=== PATIENT | male | born 1975 | race Caucasian/White ===

== ENCOUNTER 2019-07-17 02:59 | Emergency (ER) | payer OTHER, SELFPAY ==
--- NOTE | 2019-07-17 03:10 | PC.NURSE ---
PT STATED THAT HE DIDNT HAVE ENOUGH ENERGY TO WAIT TO BE SEEN, SO PATIENT WALKED OUT.
== END 2019-07-17 03:10 | disposition left against medical advice (07) ==
LOC: ANHED 03:23
DX: Z53.21 Procedure and treatment not carried out due to patient leaving prior to being seen by health care provider (principal)
CPT/HCPCS: 99199

== ENCOUNTER 2020-07-26 21:45 | Emergency (ER) | payer OTHER, SELFPAY ==
--- NOTE | ~2020-07-26 | XR_ITS ---
EXAMINATION: XR chest 2V DATE: 07/26/2020 22:25 INDICATION: Tachycardia. Palpitations. TECHNIQUE: PA and lateral views of the chest were obtained. COMPARISON: Chest radiograph dated 06/21/2016 FINDINGS: Again seen is a calcified nodule in the anterior left midlung zone consistent with old granulomatous disease. No other airspace opacities, pulmonary edema, pleural effusion or pneumothorax. The cardiome diastinal silhouette is normal. Visualized bones and soft tissues are unremarkable. IMPRESSION: 1. No acute cardiopulmonary disease. Reviewed, dictated and finalized at location A. T FITTER
--- NOTE | ~2020-07-26 | CT_ITS ---
EXAMINATION: CTA chest PE protocol DATE: 07/26/2020 23:46 INDICATION: Tachycardia. Palpitations. Elevated d-dimer. TECHNIQUE: Computed tomography (CT) pulmonary angiogram of the chest was performed with 100 mL Omnipa que-350 intravenous contrast. Additional 3D reconstructions utilizing coronal maximum intensity proje ction (MIP) were performed. Automated exposure control and iterative reconstruction technique were em ployed. The dose-length product was 1053.14 mGy-cm. COMPARISON: None FINDINGS: Adequate but suboptimal contrast opacification of the pulmonary arteries. There is mild streak artifa ct from dense contrast in the superior vena cava and right atrium. Mild scattered respiratory motion artifact which does not significantly limit evaluation. No pulmonary embolism. Mild dependent atelect asis in the bilateral lower lobes. Calcified left upper lobe nodule and calcified mediastinal lymph n odes consistent with old granulomatous disease. Heart size is normal. No pericardial effusion. Thorac ic aorta is normal in caliber with no dissection. Small sliding-type hiatal hernia. A few mildly prom inent but still normal-sized likely reactive right hilar lymph nodes. No pathologically enlarged thor acic lymphadenopathy. Gynecomastia. Visualized upper abdomen and bones are unremarkable. IMPRESSION: 1. No pulmonary embolism or other acute cardiopulmonary disease. Reviewed, dictated and finalized at location A. CAL COLLECTOR
[2020-07-26 21:48] VITALS: BP 176/110; PULSE 123; RESP 14; TEMP 36.7; O2SAT 100
--- NOTE | 2020-07-26 21:55 | ECG_ITS ---
Measurements Intervals [place] Rate: 120 P: 55 NH: 174 QRS: -44 QRSD: 113 T: 75 QT: 314 QTc: 445 Interpretive Statements SINUS TACHYCARDIA LEFT AXIS DEVIATION DELAYED PRECORDIAL R/S TRANSITION ABNORMAL ECG Electronically Signed On 07-27-2020 7:04:47 [employer] by Sumeet Brooks D.O.
--- NOTE | 2020-07-26 21:56 | ED.ARRPALP ---
HPI - Arrhythmia/Palpitations General Chief Complaint: Arrhythmia/Palpitations Stated Complaint: elevated heart rate Time Seen by Provider: 07/26/20 21:53 Source: patient Mode of arrival: ambulatory Limitations: no limitations History of Present Illness HPI narrative: Pt c/o palpitations, started [employer] after he was running around chasing his kids, sudden onset. Pt denies any cp, sob, abd pain, n/v/d fever or chills. Patient states he has a history of hypertension but has not taken his blood pressure medications. MD complaint: heart racing and palpitations Related Data Home Medications Medication Instructions Recorded Confirmed lisinopril 20 1 tablet PO DAILY 05/07/19 mg-hydrochlorothiazide 12.5 mg tablet nebivolol 5 mg tablet 5 mg PO DAILY 05/07/19 vilazodone 40 mg tablet 40 mg PO DAILY 04/18/20 04/18/20 Allergies Allergy/AdvReac Type Severity Reaction Status Date / Time Sulfa (Sulfonamide Allergy Mild Rash Verified 07/26/20 21:52 Antibiotics) Review of Systems Review of Systems: All systems reviewed & are unremarkable except as noted in HPI and below Constitutional: Constitutional: Denies body ache(s), Denies chills, Denies excessive sweating, Denies fatigue, Denies fever(s), Denies headache(s), Denies lethargy, Denies malaise, Denies weakness and Denies weight loss Eyes: Eyes: Denies blurry vision, Denies change in vision and Denies loss of vision ENT: Denies dizziness, Denies ear discharge, Denies headache(s), Denies lip swelling, Denies epistaxis, Denies nasal congestion, Denies neck pain, Denies throat swelling and Denies tongue swelling Cardiovascular: Cardiovascular: Denies chest pain, Denies chest pain at rest, Denies chest pain with activity, Denies diaphoresis, Denies edema, Denies irregular heart rhythm, Denies lightheadedness, Denies dyspnea and Denies dyspnea on exertion Respiratory: Respiratory: Denies chest congestion, Denies cough, Denies hemoptysis, Denies dyspnea and Denies dyspnea on exertion Gastrointestinal: Gastrointestinal: Denies abdominal pain, Denies melena, Denies hematochezia, Denies diarrhea, Denies nausea, Denies vomiting and Denies hematemesis Musculoskeletal: Musculoskeletal: Denies abnormal gait, Denies deformity, Denies joint swelling, Denies limited range of motion, Denies neck pain and Denies numbness Neurologic: Denies Abnormal speech present, Denies abnormal gait, Denies confusion, Denies dizziness, Denies headache(s), Denies focal weakness, Denies loss of vision, Denies numbness, Denies Other visual disturbances, Denies Sensory deficit (Neuro) and Denies weakness Psychiatric: Psychiatric: Denies confusion, Denies depression, Denies auditory hallucinations, Denies homicidal ideation and Denies suicidal ideation Endocrine: Endocrine: Denies cold intolerance, Denies excessive sweating, Denies fatigue, Denies heat intolerance and Denies palpitations Hematologic/Lymphatic: Hematologic/Lymphatic: Denies easy bleeding and Denies easy bruising Allergic/Immunologic: Allergic/Immunologic: Denies lip swelling, Denies throat swelling and Denies tongue swelling PMFSH Past Medical History Medical History Anxiety Bilirubinemia Blood in stool Decubitus ulcers Eosinophilic esophagitis GERD (gastroesophageal reflux disease) HTN (hypertension), benign Hypertension Obese Family History Family History Father Hypertension GERD (gastroesophageal reflux disease) Mother Hypertension Social History Social History Smoking status: Never smoker Second hand tobacco smoke exposure: No Alcohol intake: current Exam Const: General: cooperative, healthy appearing, comfortable, no acute distress, well developed, alert and awake; No confusion Orientation/consciousness: oriented to person, orien
[2020-07-26 22:04] LABS: Basophils Absolute Auto 0.1 K/mm3 (0.0-0.1); Basophils Percent Auto 0.6 % (0.2-1.2); Eosinophils Absolute Auto 0.2 K/mm3 (0-0.3); Eosinophils Percent Auto 1.8 % (0-4.4); Hematocrit 43.8 % (42.0-52.0); Hemoglobin 16.2 g/dL (14.0-18.0); Immature Granulocyte Absolute 0.03 K/mm3 (0.00-0.031); Immature Granulocyte Percent A 0.3 % (0-0.5); Lymphocytes Absolute Auto 3.26 K/mm3 (0.9-3.2); Lymphocytes Percent Auto 36.9 % (18.3-44.2); Mean Corpuscular Hemoglobin 32.7 pg (26-34); Mean Corpuscular Volume 88.5 fl (80-100); Mean Platelet Volume 11.5 fl (7.4-10.4); Monocytes Absolute Auto 0.7 K/mm3 (0.1-0.6); Neutrophils Absolute Auto 4.6 K/mm3 (1.3-6.7); Neutrophils Percent Auto 52.4 % (45.5-73.1); Platelet Count Result 178 k/mm3 (150-375); Red Blood Count 4.95 M/mm3 (4.6-6.20); White Blood Count 8.8 K/mm3 (4.5-10.0)
[2020-07-26 22:14] LABS: INR 0.9; Partial Thromboplastin Time 30.5 SECONDS (22.3-36.8); Prothrombin Time 12.7 Seconds (11.1-14.7)
[2020-07-26 22:17] LABS: D Dimer 0.65 ug/mL (<0.48)
[2020-07-26] MEDS: LABETALOL HCL INJ 100 MG/20 ML VIAL 20 MG IV PUSH (22:24)
[2020-07-26 22:53] VITALS: BP 161/96; PULSE 105; RESP 16; O2SAT 95
[2020-07-26 23:13] LABS: Alanine Aminotransferase 85 U/L (4-50); Albumin Level 4.3 g/dL (3.5-5.1); Alkaline Phosphatase 84 U/L (38-126); Anion Gap 7 mmol/L (8-16); Aspartate Amino Transferase 54 U/L (17-59); Bilirubin,Total 1.4 mg/dL (0.2-1.3); Blood Urea Nitrogen 15 mg/dL (9-20); Carbon Dioxide 28 mmol/L (22-30); Chloride 106 mmol/L (98-107); Estimated Glomerular Filt Rate > 60; Glucose 103 mg/dL (75-110); Potassium 3.6 mmol/L (3.4-5.0); Sodium 141 mmol/L (137-145)
[2020-07-26 23:24] LABS: Troponin I < 0.012 ng/mL (0.000-0.034)
[2020-07-26 23:53] VITALS: BP 155/81; PULSE 94; RESP 16; O2SAT 99
[2020-07-27 00:40] VITALS: BP 141/73; PULSE 90; RESP 16; TEMP 36.6; O2SAT 97
== END 2020-07-27 00:48 | disposition home or self-care (01) ==
PROVIDERS: Emergency Provider Emergency Medicine
DX: R00.2 Palpitations (principal); I10 Essential (primary) hypertension; K21.9 Gastro-esophageal reflux disease without esophagitis; E66.9 Obesity, unspecified; R00.0 Tachycardia, unspecified; R94.31 Abnormal electrocardiogram [ECG] [EKG]
CPT/HCPCS: 36415; 71046; 71275; 80053; 84443; 84484; 85025; 85380; 85610; 85730; 93005; 96374; 99284; Q9967

== ENCOUNTER 2022-11-07 07:09 | Emergency (ER) | payer BC, SELFPAY ==
[2022-11-07] VITALS (15 sets, daily range): BP systolic 144–168; BP diastolic 95–105; PULSE 67–110; RESP 14–23; TEMP 36.3; O2SAT 95–100
--- NOTE | ~2022-11-07 | XR_ITS ---
EXAMINATION: XR chest 1V portable DATE: 11/07/2022 09:41 INDICATION: Hypertension and obesity. Feeling ill TECHNIQUE: frontal view of the chest was obtained. COMPARISON: Chest radiograph and CT dated 07/26/2020 FINDINGS: Calcified nodule at the medial left midlung zone and calcified mediastinal lymph nodes consistent wit h old granulomatous disease. No new airspace opacities, pulmonary edema, pleural effusion or pneumoth orax. The cardiomediastinal silhouette is normal. IMPRESSION: 1. No acute cardiopulmonary disease. Reviewed, dictated and finalized at location A.
--- NOTE | 2022-11-07 07:29 | PC.NURSE ---
Pt ambulates into ER c/o a possible sinus infection, muscle tightness, and weakness that has been on going for a few days now. States that he was having pressure in his sinuses and having a post nasal drip. States the drip is green in color and thick. States around 2300 last night he started to become weak and feel like he could not get around like he should be able to. States he has generalized body aches. Hx of HTN, EOE, stomach ulcers, and GERD. Supposed to be getting an endoscopy next week. States he started a new EOE medication last week. States he took Advil last night with not much relief. States he is having trouble sleeping.
--- NOTE | 2022-11-07 08:29 | ED.GENADULT ---
HPI - General Adult General Chief complaint: Unspecified Stated complaint: I don't feel good Time Seen by Provider: 11/07/22 07:29 History of Present Illness HPI narrative: 47-year-old male presented to the emergency department for evaluation of generalized weakness and sinus pressure that started yesterday. Patient states symptoms started yesterday and have been progressing. Patient reports over the last few days he has had increased muscle tightness. Patient also reports increased sinus congestion. Related Data Home Medications Medication Instructions Recorded Confirmed lisinopril 10 mg tablet 10 mg PO DAILY 10/04/22 omeprazole 20 mg capsule,delayed 20 mg PO DAILY 10/04/22 release Allergies Allergy/AdvReac Type Severity Reaction Status Date / Time Sulfa (Sulfonamide Allergy Mild Rash Verified 10/04/22 08:31 Antibiotics) Review of Systems Review of Systems: All systems reviewed & are unremarkable except as noted in HPI and below PMFSH Past Medical History Medical History (Updated 11/07/22 @ 09:58 by Cory Martin MD) Anxiety Bilirubinemia Blood in stool Colon cancer screening Decubitus ulcers Eosinophilic esophagitis GERD (gastroesophageal reflux disease) HTN (hypertension), benign Hypertension Obese Family History Family History Father Hypertension GERD (gastroesophageal reflux disease) Mother Hypertension Social History Social History Smoking status: Never smoker Second hand tobacco smoke exposure: No Alcohol intake: current Alcohol use details: 1x a week Exam Narrative: APPEARANCE: Well appearing, no pain, no distress, well-nourished. HEAD: normocephalic, atraumatic. EYES: PERRLA/EOMI, conjunctivae clear. NOSE: Normal no drainage EARS:TMS clear with good light reflex. THROAT: Pharynx clear, no exudate. NECK: Supple. No adenopathy, no masses. RESPIRATORY: Airway patent, respirations nonlabored. Clear to auscultation bilaterally, no rales, rhonchi, wheezing. CARDIOVASCULAR: Regular rate and rhythm without murmurs rubs or gallops. ABDOMINAL: Soft, nontender, nondistended, normal bowel sounds MUSCULOSKELETAL: Moves all extremities. Strength/ROM intact, No edema, No calf tenderness. NEURO: Alert. Cranial nerves II through XII intact. Good gait. Good coordination SKIN: Warm, dry. Normal Color Course Course Emergency Course: 47-year-old male presented the ED for evaluation of sinus congestion. Patient was afebrile with no leukocytosis. Patient's CMP was similar to his baseline. Patient was negative for COVID influenza and RSV. Chest x-ray showed no acute cardial pulmonary abnormality. Patient was treated with Augmentin for a suspected sinus infection. Patient was updated on the results of the work-up. All questions and concerns were addressed. Vital Signs Vital signs: Vital Signs Temperature 97.4 F L 11/07/22 07:12 Pulse Rate 110 H 11/07/22 07:12 Respiratory Rate 18 11/07/22 07:12 Blood Pressure 168/100 H 11/07/22 07:12 Pulse Oximetry 100 11/07/22 07:12 Oxygen Delivery Room Air 11/07/22 07:12 Temperature 97.4 F L 11/07/22 07:12 Pulse Rate 76 11/07/22 10:16 Respiratory Rate 20 11/07/22 10:16 Blood Pressure 149/95 H 11/07/22 10:16 Pulse Oximetry 100 11/07/22 10:16 Oxygen Delivery Room Air 11/07/22 07:12 Medical Decision Making Differential Diagnosis Differential Diagnosis: Viral infection, pneumonia, sinusitis Vital Signs Vital Signs: Vital Signs Temperature 97.4 F L 11/07/22 07:12 Pulse Rate 110 H 11/07/22 07:12 Respiratory Rate 18 11/07/22 07:12 Blood Pressure 168/100 H 11/07/22 07:12 Pulse Oximetry 100 11/07/22 07:12 Oxygen Delivery Room Air 11/07/22 07:12 Temperature 97.4 F L 11/07/22 07:12 Pulse Rate 76 11/07/22 10:16 Respirator
[2022-11-07 08:56] LABS: Influenza A QL RT-PCR Negative (Negative); Influenza B QL RT-PCR Negative (Negative); RSV RNA, RT-PCR Negative (Negative); SARS-CoV-2 RNA PCR Negative (Negative)
[2022-11-07 09:05] LABS: Basophils Percent Auto 0.4 % (0.2-1.2); Eosinophils Percent Auto 0.3 % (0-4.4); Hemoglobin 14.1 g/dL (14.0-18.0); Immature Granulocyte Absolute 0.01 K/mm3 (0.00-0.031); Immature Granulocyte Percent A 0.1 % (0-0.5); Lymphocytes Absolute Auto 1.06 K/mm3 (0.9-3.2); Lymphocytes Percent Auto 15.5 % (18.3-44.2); Mean Corpuscular HGB Conc 36.2 g/dl (32-36); Mean Corpuscular Hemoglobin 31.8 pg (26-34); Mean Platelet Volume 11.8 fl (7.4-10.4); Monocytes Absolute Auto 0.4 K/mm3 (0.1-0.6); Neutrophils Absolute Auto 5.3 K/mm3 (1.3-6.7); Neutrophils Percent Auto 77.7 % (45.5-73.1); Platelet Count Result 151 k/mm3 (150-375); Red Blood Count 4.43 M/mm3 (4.6-6.20); Red Cell Distribution Width 11.8 % (11.5-14.5); White Blood Count 6.9 K/mm3 (4.5-10.0)
[2022-11-07 09:15] LABS: Alanine Aminotransferase 41 U/L (6-50); Albumin Level 4.5 g/dL (3.5-5.1); Alkaline Phosphatase 72 U/L (38-126); Anion Gap 7 mmol/L (8-16); Aspartate Amino Transferase 36 U/L (17-59); Bilirubin,Total 1.7 mg/dL (0.2-1.3); Blood Urea Nitrogen 12 mg/dL (9-20); Calcium 9.1 mg/dL (8.4-10.2); Carbon Dioxide 26 mmol/L (22-30); Chloride 105 mmol/L (98-107); Estimated CRCL calculation 152 ml/min; Estimated Glomerular Filt Rate > 60; Glucose 109 mg/dL (65-110); Potassium 3.8 mmol/L (3.4-5.0); Sodium 138 mmol/L (137-145)
== END 2022-11-07 10:20 | disposition home or self-care (01) ==
PROVIDERS: Emergency Provider Emergency Medicine
DX: J01.90 Acute sinusitis, unspecified (principal); Z20.822 Contact with and (suspected) exposure to COVID-19; I10 Essential (primary) hypertension; K21.9 Gastro-esophageal reflux disease without esophagitis; E66.9 Obesity, unspecified; Z68.39 Body mass index [BMI] 39.0-39.9, adult
CPT/HCPCS: 36415; 71045; 80053; 85025; 87637; 99283

== ENCOUNTER 2022-11-26 00:48 | Day surgery (SDC) | payer BC, SELFPAY ==
[2022-11-22 15:33] VITALS: BMI 37.9
--- NOTE | 2022-11-26 08:24 | P.PNAN_ITS ---
Anes - Initial Pre Proc Eval Procedure: Operation Date: 11/26/22 13:45 Proposed Procedures p Esophagogastroduodenoscopy & Screening Colonoscopy - Saurav Gandhi MD Date/Time: 11/26/22 08:24 Surgeon: Saurav Alvarez MD Pre Op Diagnosis: eosinophilic esophagitis, neoplasm screening Patient Data Age: 47 Gender: M Height: 1.88 m Weight: 134 kg Allergies Allergy/AdvReac Type Severity Reaction Status Date / Time Sulfa (Sulfonamide Allergy Mild Rash Verified 11/26/22 12:36 Antibiotics) Home Medications Medication Instructions Recorded Confirmed Type lisinopril 10 mg tablet 10 mg PO DAILY 10/04/22 11/26/22 History omeprazole 20 mg capsule,delayed 20 mg PO DAILY 10/04/22 11/26/22 History release fluticasone propionate 220 2 puff inhalation Q12H #12 grams 11/23/22 11/26/22 Rx mcg/actuation HFA aerosol inhaler (Flovent HFA) Patient hx anesthesia problems: none Family hx anesthesia problems: none Results Review: All pre-operative results and documents have been reviewed as part of the pre- operative evaluation. [facility] Past Medical History Medical History (Updated 11/08/22 @ 00:00 by LumiThera Leigh Ann) Anxiety Bilirubinemia Blood in stool Colon cancer screening Decubitus ulcers Eosinophilic esophagitis GERD (gastroesophageal reflux disease) HTN (hypertension), benign Hypertension Obese Family History Family History Father Hypertension GERD (gastroesophageal reflux disease) Mother Hypertension Social History Social History Smoking status: Never smoker Second hand tobacco smoke exposure: No Alcohol intake: never Alcohol use details: 1x a week Substance use: never Substance use type: does not use Living arrangements: with family Spiritual care concerns: No Anes - Eval Final PreProcedure Day of Procedure 11/26/22 08:24 Patient weight: obese Heart: regular rate and rhythm Lungs: clear to auscultation Airway: Mallampati scale class II Neurological: alert and oriented Last oral intake: >/= 8 hours ASA classification: III Emergent: no Anesthetic plan: proceed Anesthesia type and monitoring: general GIVS and standard monitoring Results Review: All pre-operative results and documents have been reviewed as part of the pre- operative evaluation. Informed Consent: The patient's anesthetic plan and its attendant risks and benefits were discussed with the patient/family/POA. Questions were solicited and answers provided to the satisfaction of the patient/family/POA.
[2022-11-26 12:37] VITALS: BP 135/91; PULSE 72; RESP 18; TEMP 36.4; O2SAT 100; BMI 38.3
[2022-11-26] MEDS: LACTATED RINGERS 1,000 ML 150 ML IV CONT (12:51)
--- NOTE | 2022-11-26 13:23 | PM.HPGS ---
History of Present Illness History of Present Illness Consent: Risks, benefits, and alternatives have been discussed and questions answered. Patient agrees to proceed with procedure. Chief complaint: eosinophilic esophagitis, neoplasm screening Narrative: Kai Luna is a 47 year old male with eoe diagnosed 5 years ago, on ppi and inhaler steroid which is helping, never had colonoscopy. Review of Systems Constitutional: Constitutional: Denies headache(s) and Denies weakness Eyes: Eyes: Denies blurry vision ENT: Reports Normal hearing present, Denies headache(s) and Denies neck pain Cardiovascular: Cardiovascular: Denies chest pain and Denies dyspnea Respiratory: Respiratory: Denies dyspnea Gastrointestinal: Gastrointestinal: Reports no additional gastrointestinal complaints Genitourinary: Genitourinary: Denies dysuria Musculoskeletal: Musculoskeletal: Denies neck pain Integumentary/Breasts: Skin/Breast: Denies dry skin Neurologic: Reports Normal hearing present, Denies headache(s) and Denies weakness Psychiatric: Psychiatric: Denies anxiety Endocrine: Endocrine: Denies change in body appearance Hematologic/Lymphatic: Hematologic/Lymphatic: Denies easy bleeding Allergic/Immunologic: Allergic/Immunologic: Denies urticaria PMF Past Medical History Medical History (Updated 11/08/22 @ 00:00 by Batsheva Beltrán) Anxiety Bilirubinemia Blood in stool Colon cancer screening Decubitus ulcers Eosinophilic esophagitis GERD (gastroesophageal reflux disease) HTN (hypertension), benign Hypertension Obese Family History Family History Father Hypertension GERD (gastroesophageal reflux disease) Mother Hypertension Social History Social History Smoking status: Never smoker Second hand tobacco smoke exposure: No Alcohol intake: never Alcohol use details: 1x a week Substance use: never Substance use type: does not use Living arrangements: with family Spiritual care concerns: No Meds Home Medications and Allergies Home Medications Medication Instructions Recorded Confirmed Type lisinopril 10 mg tablet 10 mg PO DAILY 10/04/22 11/26/22 History omeprazole 20 mg capsule,delayed 20 mg PO DAILY 10/04/22 11/26/22 History release fluticasone propionate 220 2 puff inhalation Q12H #12 grams 11/23/22 11/26/22 Rx mcg/actuation HFA aerosol inhaler (Flovent HFA) Allergies Allergy/AdvReac Type Severity Reaction Status Date / Time Sulfa (Sulfonamide Allergy Mild Rash Verified 11/26/22 12:36 Antibiotics) Vital Signs Vital Signs - 24 hr 11/26/22 12:37 Temperature 97.6 F Pulse Rate 72 Respiratory Rate 18 Blood Pressure 135/91 H Pulse Oximetry 100 Oxygen Delivery Room Air Exam Const: General: comfortable and no acute distress HENMT: Face/Nose/Sinus: Normal nares present Eyes: General: appearance normal, both eyes and all related structures Neck: Neck: no JVD Resp: Auscultation: clear to auscultation bilaterally Cardio: Rate: regular rate Rhythm: regular rhythm GI: Inspection: non-distended GI Palp: Yes Soft to palpation Skin: General skin exam: normal color Neuro: General: gait normal Speech: normal speech Extrem: General: normal to inspection Psych: Mental Status: mental status grossly normal Assessment and Plan Assessment and plan (1) Eosinophilic esophagitis: Code(s): K20.0 - Eosinophilic esophagitis Status: Acute Assessment and Plan: egd with bx relatively controlled with meds (2) Colon cancer screening: Code(s): Z12.11 - Encounter for screening for malignant neoplasm of colon Status: Acute Assessment and Plan: colonoscopy
[2022-11-26] MEDS: BENZOCAINE (*SP) 60 ML SPRAY CAN (HURRICAINE) 1 SPRAY MUCOUS MEM (13:29)
--- NOTE | 2022-11-26 13:40 | SUR.OPER ---
EGD start 1331 end 1335, Colonoscopy start 1340
[2022-11-26 13:54] VITALS: BP 117/67; PULSE 68; RESP 21; O2SAT 98
[2022-11-26 14:04] VITALS: BP 124/74; PULSE 70; RESP 20; O2SAT 100
[2022-11-26 14:14] VITALS: BP 144/80; PULSE 60; RESP 22; O2SAT 100
== END 2022-11-26 14:18 | disposition home or self-care (01) ==
PROVIDERS: Visit Provider Internal Medicine Gastroenterology
PROC: 0DJ08ZZ Inspection of Upper Intestinal Tract, Via Natural or Artificial Opening Endoscopic (ICD-10-PCS; CPT 43235; principal; 2022-11-26 13:45)
DX: Z12.11 Encounter for screening for malignant neoplasm of colon (principal); K64.8 Other hemorrhoids; K21.9 Gastro-esophageal reflux disease without esophagitis; I10 Essential (primary) hypertension; Z87.19 Personal history of other diseases of the digestive system; E66.9 Obesity, unspecified; Z68.38 Body mass index [BMI] 38.0-38.9, adult
CPT/HCPCS: 45378; 43239; 88305; J2704; J7120